=== PATIENT | female | born 1965 | race Caucasian/White ===

== ENCOUNTER → 2016-07-30 | Outpatient (CLI) | payer OTHER ==
[~2016-07-30] MED LIST: /WARF5TA PO; ACET50TA PO; CALC100T2 PO; PERC7.5T12 PO; TYLE325T5 PO; VITA200015 PO; VITACAP9 PO; YAZ PO; [UNRECOGNIZED DRUG - CODE] PO; [UNRECOGNIZED DRUG - CODE] SC; [UNRECOGNIZED DRUG - OTHER] PO
[2016-07-30 15:40] LABS: MEAN CORPUSCULAR HEMOGLOBIN 28.6 pg (27.0-33.0); MEAN CORPUSCULAR VOLUME 86.5 fl (80.0-96.0); WHITE BLOOD COUNT 5.1 K/mm3 (4.0-10.0)
[2016-07-30 15:50] LABS: ANION GAP 6 MEQ/L (8-16); BLOOD UREA NITROGEN 20 MG/DL (7-18); CALCIUM LEVEL 8.9 MG/DL (8.5-10.1); CARBON DIOXIDE LEVEL 29 MEQ/L (21-32); CHLORIDE LEVEL 106 MEQ/L (98-107); CREATININE FOR GFR 0.86 MG/DL (0.55-1.02); GLOMERULAR FILTRATION RATE > 60.0 (>51); GLUCOSE, FASTING 95 MG/DL (70-105); POTASSIUM SERUM 3.9 MEQ/L (3.5-5.1); SODIUM LEVEL 141 MEQ/L (136-145)
== END ==
LOC: M LAB 14:49
PROVIDERS: ATTEND Nurse Practitioner Adult Health
DX: Z51.81 Encounter for therapeutic drug level monitoring (principal); Z79.01 Long term (current) use of anticoagulants

== ENCOUNTER → 2018-03-16 | Outpatient (REF) | payer OTHER | LOC: M SFHCWAGY 15:48 | PROVIDERS: ATTEND Nurse Practitioner Family | DX: N95.1 Menopausal and female climacteric states (principal) ==

== ENCOUNTER 2018-04-21 16:18 | Emergency (ER) | payer OTHER ==
[~2018-04-21] VITALS: Ht 167.6 cm; Wt 61.4 kg
[2018-04-21 16:19] VITALS: BP 138/82
[2018-04-21] MEDS ORDERED: XARE20TA PO (16:27)
--- NOTE | 2018-04-21 17:15 | REP ---
RIGHT SHOULDER: 04/21/2018. Clinical history: Right shoulder pain. Comparison: There are no prior pertinent studies. Findings: The AC joint shows no abnormal widening of the joint space. There is no clavicular fracture. Glenohumeral joint shows no subluxation or dislocation and has very minimal spurring inferiorly. No abnormal soft tissue calcifications are noted about the shoulder. The ribs, scapula, and humerus also without fracture. Impression: 1. Minor degenerative changes about the shoulder without visible or displaced fracture, avulsion, subluxation, dislocation or any focal bone lesion. No abnormal soft-tissue calcification identified. Electronically Signed by Zach Doyle MD 04/21/2018 06:00 P
[2018-04-21] MEDS ORDERED: SOMA350T PO (17:26)
[2018-04-21] MEDS ORDERED: ACETAMINOPHEN 325 MG TAB PO ONE (17:30)
[2018-04-21] MEDS ORDERED: CARISOPRODOL 350 MG TAB PO ONE (17:30)
[2018-04-21] MEDS ORDERED: TRAM50TA2 PO (17:32)
== END 2018-04-21 18:52 | disposition home or self-care (01) ==
LOC: M ED 16:18
DX: M54.12 Radiculopathy, cervical region (principal); S40.011A Contusion of right shoulder, initial encounter; W19.XXXA Unspecified fall, initial encounter; Y92.099 Unspecified place in other non-institutional residence as the place of occurrence of the external cause; Y93.9 Activity, unspecified; Y99.9 Unspecified external cause status; Z79.899 Other long term (current) drug therapy; Z88.0 Allergy status to penicillin

== ENCOUNTER → 2019-01-02 | Outpatient (POV) | payer OTHER ==
[~2019-01-02] VITALS: Ht 167.6 cm; Wt 59.1 kg
[~2019-01-02] MED LIST changes: -/WARF5TA PO; -ACET50TA PO; +COUM1TAB17 PO; +LOVE0.4I2 SC; +MAPA500T17 PO; +SOMA350T PO; +TRAM50TA2 PO; +XARE20TA PO; -[UNRECOGNIZED DRUG - CODE] SC
[2019-01-02 15:20] VITALS: BP 116/76
--- NOTE | 2019-01-03 08:05 | IRCOV ---
[facility] IR Consult Office Visit IR Consult Office Visit DATE: Jan 02, 2019 REASON FOR CONSULTATION/CHIEF COMPLAINT: Chronic venous occlusion. HISTORY OF PRESENT ILLNESS: 53-year-old female status post extensive left lower extremity deep vein thrombosis in 2011 was initially treated with anticoagulation. 2 weeks after which she was treated with thrombolysis; TPA drip overnight. Post thrombolysis she had a venogram and left iliac stenting under the care of Dr. Boo. However, at that time he was unable to get through and through access from the jugular or popliteal approach and could not stent across the occlusion. Since that time she's noticed increased varicosities over the mons pubis and along the left groin. She also suffers with increasing left lower extremity swelling and LLE fatigue. Reports pelvic pressure with defecation. No varicosities in the left leg. No ulcers. She remains on Xarelto lifelong. No chest pain, no shortness of breath, no heart attacks or strokes. No family history of DVTs. First DVT was related to prolonged journey, dehydration and oral contraceptive pill. ALLERGIES: Please see below. HOME MEDICATIONS: Please see below. 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 SOCIAL HISTORY: Active fit and well. Denies alcohol, drugs or smoking. REVIEW OF SYSTEMS: Otherwise negative. PHYSICAL EXAMINATION: VITAL SIGNS: Please see below. GENERAL APPEARANCE: Appears well. Comfortable at rest. HEENT: No scleral icterus. RESPIRATORY: Symmetric breath sounds. CARDIOVASCULAR: Normal rate. ABDOMEN: Soft nontender. Left groin varicosities and varicosities crossing midline over the mons pubis. EXTREMITIES: Left lower extremity: No edema. No bulging varicose veins. No ulcers. Skin warm. Popliteal and DP pulse 2+. Right lower extremity: No edema. No bulging varicose veins. No ulcers. Skin warm. Popliteal and DP pulse 2+. NEUROLOGICAL: Alert and oriented. PSYCHIATRIC: Appropriate to circumstance. LABORATORY DATA: None Imaging: I personally reviewed the venograms from. December 2012. There are overlapping wall stents in the left iliac vein. There is chronic venous occlusion with filling of cross pelvic collateral. Through and through access was not achieved therefore entire occlusion was not stented. Venogram performed from the right IJ and popliteal approach. ASSESSMENT/PLAN: 53-year-old female with chronic venous occlusion affecting the left lower extremity status post iliac stenting with persistent occlusion. We discussed options of reattempting recanalization from the IJ approach under moderate sedation including sharp recanalization. We discussed the options of placing a stent across the joint line and possible pain related to stent and/or stent fracture in the future. We discussed the risks of not doing anything which include left lower extremity venous hypertension and pelvic congestion syndrome. Patient would like to attempt recanalization and stenting if possible. We will schedule the patient for the procedure to be done under moderate sedation. I spent 30 minutes in consultation with the patient. Thank you for this referral. Allergies Coded Allergies: MS - Penicillins (Verified Allergy, Mild, RASH, 06/14/12) MS - Penicillins Cross Reactors (Verified Allergy, Mild, RASH, 06/14/12) Home Medications Scheduled Rivaroxaban (Xarelto), 20 MG PO DAILY, (Reported) Scheduled PRN Carisoprodol (Soma), 1 TAB PO TIDP PRN for muscle spasms Tramadol HCl (Tramadol HCl), 1 TAB PO TIDP PRN for pain VS, I&O, 24H, Fishbone Vital Signs/I&O Vital Signs Date Time Temp Pulse Resp B/P (MAP) Pulse Ox O2 Delivery O2 Flow Rate FiO2 01/02/19 15:20 97.9 61 16 116/76 (89) 99 Room Air ADIN BUTTERFIELD MD Jan 03, 2019 08:04
== END ==
LOC: M IRPOV 15:04
PROVIDERS: ATTEND Radiology Diagnostic Radiology
DX: I87.1 Compression of vein (principal); Z86.718 Personal history of other venous thrombosis and embolism; Z88.0 Allergy status to penicillin; Z79.01 Long term (current) use of anticoagulants

== ENCOUNTER → 2022-01-28 | Outpatient (REF) | payer OTHER ==
[2022-01-28 19:26] LABS: RHEUMATOID FACTOR QUANT < 3.5 IU/ML (<14)
== END ==
LOC: M LAB REF 16:06
PROVIDERS: ATTEND Nurse Practitioner Adult Health
DX: M25.50 Pain in unspecified joint (principal)

== ENCOUNTER → 2022-02-10 | Outpatient (CLI) | payer OTHER | LOC: M WUC 15:32 | PROVIDERS: ATTEND Nurse Practitioner Adult Health | DX: R07.9 Chest pain, unspecified (principal) ==

== ENCOUNTER → 2022-04-08 | Outpatient (REF) | payer OTHER | LOC: M PLALAB 14:34 | PROVIDERS: ATTEND Nurse Practitioner Family | DX: Z12.4 Encounter for screening for malignant neoplasm of cervix (principal) ==

== ENCOUNTER → 2022-07-28 | Outpatient (CLI) | payer OTHER | LOC: M WUC 15:40 | PROVIDERS: ATTEND Internal Medicine Rheumatology | DX: M35.3 Polymyalgia rheumatica (principal); K59.00 Constipation, unspecified; H04.123 Dry eye syndrome of bilateral lacrimal glands ==

== ENCOUNTER → 2022-08-04 | Outpatient (CLI) | payer OTHER ==
[2022-08-04 19:25] LABS: BASO % 0.6 % (0.0-1.0); EOS # 0.2 10^3/uL (0.0-0.5); EOS % 2.8 % (0.0-3.0); HEMOGLOBIN 12.9 g/dl (12.0-15.5); LYMPH # 2.1 10^3/uL (1.5-5.0); LYMPH % 31.4 % (24.0-44.0); MEAN CORPUSCULAR HEMOGLOBIN 28.7 pg (27.0-33.0); MEAN CORPUSCULAR HGB CONC 32.3 g/dl (32.0-36.5); MEAN CORPUSCULAR VOLUME 89.1 fl (80.0-96.0); MONO # 0.5 10^3/uL (0.0-0.8); MONO % 7.6 % (2.0-8.0); NEUTROPHILS # 3.9 10^3/uL (1.5-8.5); NEUTROPHILS % 57.5 % (36.0-66.0); PLATELET COUNT, AUTOMATED 227 10^3/uL (150-450); RED BLOOD COUNT 4.49 10^6/uL (4.00-5.40); WHITE BLOOD COUNT 6.7 10^3/uL (4.0-10.0)
[2022-08-04 19:30] LABS: ERYTHROCYTE SEDIMENTATION RATE 7 mm/hr (0-30)
[2022-08-04 19:50] LABS: LDH LACTATE DEHYDROGENASE 175 U/L (120-246)
[2022-08-04 19:51] LABS: CPK CREATINE PHOSPHOKINASE 54 U/L (34-145)
[2022-08-04 19:52] LABS: ALBUMIN 3.8 G/DL (3.2-5.2); ALKALINE PHOSPHATASE 65 U/L (46-116); ALT/SGPT 18 U/L (7.0-40); AST/SGOT 17 U/L (<34); BILIRUBIN,TOTAL 0.7 MG/DL (0.3-1.2); BLOOD UREA NITROGEN 23 MG/DL (9-23); C REACTIVE PROTEIN QUANTITATIV < 0.40 MG/DL (<1.0); CALCIUM LEVEL 8.2 MG/DL (8.5-10.1); CARBON DIOXIDE LEVEL 25 MMOL/L (20-31); CHLORIDE LEVEL 108 MMOL/L (98-107); CREATININE FOR GFR 0.78 MG/DL (0.55-1.30); GLOMERULAR FILTRATION RATE > 60.0 (>51); GLUCOSE, FASTING 104 MG/DL (60-100); POTASSIUM SERUM 4.4 MMOL/L (3.5-5.1); SODIUM LEVEL 140 MMOL/L (136-145); TOTAL PROTEIN 6.5 G/DL (5.7-8.2)
[2022-08-13 20:07] LABS: HLA-B27 Negative (.); SSA SJOGRENS A <0.2 AI (0.0-0.9); SSB SJOGRENS B <0.2 AI (0.0-0.9)
== END ==
LOC: M WUC 15:39
PROVIDERS: ATTEND Internal Medicine Rheumatology
DX: M35.3 Polymyalgia rheumatica (principal); K59.00 Constipation, unspecified; H04.123 Dry eye syndrome of bilateral lacrimal glands

== ENCOUNTER → 2022-08-17 | Outpatient (CLI) | payer OTHER ==
[~2022-08-17] MED LIST changes: +ISOVUE-370 76% 100ML VIAL As Ordered ONE
== END ==
LOC: M RAD 17:23
PROVIDERS: ATTEND Internal Medicine Rheumatology
DX: H04.123 Dry eye syndrome of bilateral lacrimal glands (principal); M35.3 Polymyalgia rheumatica; K59.00 Constipation, unspecified

== ENCOUNTER 2022-12-28 06:57 | Day surgery (SDC) | payer OTHER ==
[~2022-12-28] VITALS: Ht 169.2 cm; Wt 60.0 kg
[~2022-12-28 06:57] MED LIST changes: +B-12100010 PO; +EQL50TAB2 PO; -ISOVUE-370 76% 100ML VIAL As Ordered ONE; +K2 P1TAB PO; +MAGN120C2 PO; +NS 1,000 ML IV ONE; +PROBCAP14 PO; +[UNRECOGNIZED DRUG - CODE] PO
[2022-12-28] MEDS ORDERED: propofoL 200 MG/20 ML VIAL As Ordered ONE (07:20)
[2022-12-28] MEDS ORDERED: LIDOCAINE 2% 100MG/5ML SDV (FOR ANES.) As Ordered ONE (07:20)
[2022-12-28 08:50] VITALS: TEMP 97.2
[2022-12-28 09:05] VITALS: BP 116/55; O2SAT 100
== END 2022-12-28 09:18 | disposition home or self-care (01) ==
LOC: M OPP 06:57
PROVIDERS: ATTEND Internal Medicine Gastroenterology
DX: Z12.11 Encounter for screening for malignant neoplasm of colon (principal); Z79.01 Long term (current) use of anticoagulants; Z88.0 Allergy status to penicillin

== ENCOUNTER → 2023-03-18 | Outpatient (REF) | payer OTHER ==
[~2023-03-18] MED LIST changes: -NS 1,000 ML IV ONE
[2023-03-18 19:36] LABS: C REACTIVE PROTEIN QUANTITATIV < 0.40 MG/DL (<1.0); IMMUNOGLOBULIN A 261.4 MG/DL (40-350)
[2023-03-21 23:07] LABS: ENDOMYSIAL ABY IgA Negative (Negative); TISSUE TRANSGLUTAMINASE IgA <2 U/mL (0-3)
== END ==
LOC: M LAB REF 16:23
PROVIDERS: ATTEND Internal Medicine
DX: M13.0 Polyarthritis, unspecified (principal)

== ENCOUNTER → 2024-04-06 | Outpatient (CLI) | payer OTHER ==
[~2024-04-06] MED LIST changes: -MAGN120C2 PO; +MAGNESIUM GLYC120 MG PO
[2024-04-06 19:36] LABS: ALBUMIN 3.7 G/DL (3.2-5.2); ALKALINE PHOSPHATASE 62 U/L (35-104); ALT/SGPT 16 U/L (7.0-40); AST/SGOT 12 U/L (<34); BILIRUBIN,TOTAL 0.7 MG/DL (0.3-1.2); BLOOD UREA NITROGEN 20 MG/DL (9-23); C REACTIVE PROTEIN QUANTITATIV 0.99 MG/DL (<1.0); CALCIUM LEVEL 8.7 MG/DL (8.5-10.1); CARBON DIOXIDE LEVEL 28 MMOL/L (20-31); CHLORIDE LEVEL 105 MMOL/L (98-107); CREATININE FOR GFR 0.78 MG/DL (0.55-1.30); GLOMERULAR FILTRATION RATE > 60.0 (>51); GLUCOSE, FASTING 89 MG/DL (60-100); POTASSIUM SERUM 4.5 MMOL/L (3.5-5.1); SODIUM LEVEL 143 MMOL/L (136-145); TOTAL PROTEIN 6.6 G/DL (5.7-8.2)
== END ==
LOC: M WUC 15:37
PROVIDERS: ATTEND Internal Medicine Rheumatology
DX: M86.38 Chronic multifocal osteomyelitis, other site (principal); M04.8 Other autoinflammatory syndromes; M85.80 Other specified disorders of bone density and structure, unspecified site; Q76.49 Other congenital malformations of spine, not associated with scoliosis; Z79.899 Other long term (current) drug therapy

== ENCOUNTER → 2024-04-06 | Outpatient (CLI) | payer OTHER ==
[2024-04-06 19:37] LABS: CHOLESTEROL LEVEL 197 MG/DL (<200); CHOLESTEROL RISK RATIO 2.74 (<5); HDL CHOLESTEROL 71.7 MG/DL (>40); LDL CHOLESTEROL 103.3 MG/DL (<100); NON-HDL-C 125.3 MG/DL; TRIGLYCERIDES LEVEL 110 MG/DL (<150)
[2024-04-06 19:40] LABS: THYROID STIMULATING HORMONE 1.278 uIU/ML (0.55-4.78)
[2024-04-06 20:12] LABS: HEPATITIS C VIRUS ABY INDEX < 0.02 INDEX (<0.8)
== END ==
LOC: M WUC 15:34
PROVIDERS: ATTEND Internal Medicine
DX: Z13.220 Encounter for screening for lipoid disorders (principal); Z13.31 Encounter for screening for depression; Z13.89 Encounter for screening for other disorder

== ENCOUNTER → 2024-07-16 | Outpatient (REF) | payer OTHER ==
[2024-07-16 12:34] LABS: APPEARANCE, URINE HAZY (CLEAR); BACTERIA, URINE AUTO 1+ (NEGATIVE); BILIRUBIN, URINE AUTO NEGATIVE (NEGATIVE); BLOOD, URINE BLOOD 3+ (NEGATIVE); COLOR, URINE YELLOW (YELLOW); GLUCOSE, URINE (UA) AUTO NEGATIVE (NEGATIVE); KETONE, URINE AUTO NEGATIVE (NEGATIVE); LEUKOCYTE ESTERASE, URINE AUTO 3+ (NEGATIVE); NITRITE, URINE AUTO NEGATIVE (NEGATIVE); PROTEIN, URINE AUTO 1+ mg/dL (NEGATIVE); RBC, URINE AUTO 18 /HPF (0-3); SPECIFIC GRAVITY URINE AUTO 1.008 (1.002-1.035); SQUAMOUS EPITHELIAL CELL UR AU 0 /HPF (0-6); UROBILINOGEN, URINE AUTO 0.2 mg/dL (0.0-2.0); WBC, URINE AUTO TNTC /HPF (0-3)
== END ==
LOC: M LAB REF 11:59
PROVIDERS: ATTEND Physician Assistant Medical
DX: N39.0 Urinary tract infection, site not specified (principal)

== ENCOUNTER → 2024-10-11 | Outpatient (CLI) | payer OTHER ==
[~2024-10-11] MED LIST changes: -EQL50TAB2 PO; +VITA1TAB82 PO
[2024-10-11 12:39] LABS: BASO # 0.0 10^3/uL (0.0-0.2); BASO % 0.5 % (0.0-1.0); EOS # 0.1 10^3/uL (0.0-0.5); EOS % 2.0 % (0.0-3.0); LYMPH # 1.9 10^3/uL (1.5-5.0); LYMPH % 31.2 % (24.0-44.0); MONO # 0.6 10^3/uL (0.0-0.8); MONO % 9.0 % (2.0-8.0); NEUTROPHILS # 3.5 10^3/uL (1.5-8.5); NEUTROPHILS % 57.0 % (36.0-66.0); PLATELET COUNT, AUTOMATED 224 10^3/uL (150-450)
[2024-10-11 12:43] LABS: C REACTIVE PROTEIN QUANTITATIV < 0.50 MG/DL (<1.0)
[2024-10-11 12:44] LABS: ALT/SGPT 15 U/L (7.0-40); AST/SGOT 17 U/L (<34); CALCIUM LEVEL 8.6 MG/DL (8.5-10.1); CARBON DIOXIDE LEVEL 26 MMOL/L (20-31); CHLORIDE LEVEL 108 MMOL/L (98-107); CREATININE FOR GFR 0.90 MG/DL (0.55-1.30); GLOMERULAR FILTRATION RATE 73.6 (>51); POTASSIUM SERUM 4.2 MMOL/L (3.5-5.1); SODIUM LEVEL 143 MMOL/L (136-145)
[2024-10-11 12:54] LABS: ERYTHROCYTE SEDIMENTATION RATE 5 mm/hr (0-30)
== END ==
LOC: M WUC 08:40
PROVIDERS: ATTEND Internal Medicine Rheumatology
DX: M86.38 Chronic multifocal osteomyelitis, other site (principal); M04.8 Other autoinflammatory syndromes; M85.80 Other specified disorders of bone density and structure, unspecified site; Z79.899 Other long term (current) drug therapy

== ENCOUNTER → 2025-01-18 | Outpatient (CLI) | payer OTHER ==
[2025-01-18 17:20] LABS: BASO # 0.0 10^3/uL (0.0-0.2); BASO % 0.5 % (0.0-1.0); EOS # 0.1 10^3/uL (0.0-0.5); EOS % 1.6 % (0.0-3.0); LYMPH # 1.5 10^3/uL (1.5-5.0); LYMPH % 23.4 % (24.0-44.0); MONO # 0.4 10^3/uL (0.0-0.8); MONO % 5.9 % (2.0-8.0); NEUTROPHILS # 4.3 10^3/uL (1.5-8.5); NEUTROPHILS % 68.3 % (36.0-66.0); PLATELET COUNT, AUTOMATED 256 10^3/uL (150-450)
[2025-01-18 17:43] LABS: ALT/SGPT 16 U/L (7.0-40); AST/SGOT 18 U/L (<34); C REACTIVE PROTEIN QUANTITATIV < 0.50 MG/DL (<1.0); CALCIUM LEVEL 9.4 MG/DL (8.5-10.1); CARBON DIOXIDE LEVEL 26 MMOL/L (20-31); CHLORIDE LEVEL 103 MMOL/L (98-107); CREATININE FOR GFR 0.84 MG/DL (0.55-1.30); GLOMERULAR FILTRATION RATE 80.0 (>51); POTASSIUM SERUM 4.5 MMOL/L (3.5-5.1); SODIUM LEVEL 140 MMOL/L (136-145)
[2025-01-18 17:44] LABS: TOTAL 25(OH) VITAMIN D 45.7 NG/ML (20.0-100.0)
== END ==
LOC: M WUC 15:35
PROVIDERS: ATTEND Internal Medicine Rheumatology
DX: M86.38 Chronic multifocal osteomyelitis, other site (principal); M04.8 Other autoinflammatory syndromes; M85.80 Other specified disorders of bone density and structure, unspecified site; Z79.899 Other long term (current) drug therapy; M43.22 Fusion of spine, cervical region